=== PATIENT | male | born 1985 | race Caucasian/White ===

== ENCOUNTER 2017-06-17 22:19 | Emergency (ER) | payer MEDICAID ==
[2017-06-17 22:19] VITALS: BMI 36.8
[2017-06-17 22:26] VITALS: TEMP 98.2
[2017-06-17] MEDS ORDERED: Sodium Chloride 0.9% 1,000 ML IV STA (22:48)
[2017-06-17 23:12] VITALS: BP 136/85; PULSE 133; RESP 14; O2SAT 96
[2017-06-17 23:17] LABS: BASO # 0.1 K/uL (0.0-0.2); EOS # 0.2 K/uL (0.0-0.7); EOS % 1.5 % (0.0-4.0); HEMOGLOBIN 16.1 g/dL (12.0-18.0); LYMPH # 2.3 K/uL (1.0-4.3); LYMPH % 19.7 % (20.0-40.0); MEAN CELL VOLUME 79.2 fl (80.0-94.0); MEAN CORPUSCULAR HEMOGLOBIN 26.3 pg (27.0-31.0); MEAN CORPUSCULAR HGB CONC 33.2 g/dL (33.0-37.0); MEAN PLATELET VOLUME 8.3 fl (7.2-11.7); MONO # 0.8 K/uL (0.0-0.8); MONO % 7.1 % (0.0-10.0); NEUT # 8.2 K/uL (1.8-7.0); NEUT % 70.7 % (50.0-75.0); NRBC % 0.3 % (0.0-0.0); RBC 6.13 Mil/uL (4.40-5.90); RED CELL DISTRIBUTION WIDTH 13.9 % (11.5-14.5); WHITE BLOOD COUNT 11.6 K/uL (4.8-10.8)
[2017-06-17 23:33] LABS: ALB/GLOB RATIO 1.3 (1.0-2.1); ALBUMIN 4.4 g/dL (3.5-5.0); ALT/SGPT 41 U/L (21-72); AST/SGOT 28 U/L (17-59); BLOOD UREA NITROGEN 13 mg/dl (9-20); CALCIUM 9.7 mg/dL (8.4-10.2); GFR AFRICAN-AMERICAN > 60; GFR NON-AFRICAN AMERICAN > 60; MAGNESIUM 2.3 MG/DL (1.6-2.3)
[2017-06-17 23:41] LABS: BARBITURATES, UR NEGATIVE (NEGATIVE); BENZODIAZEPINES, UR POSITIVE (NEGATIVE); OPIATES, UR NEGATIVE (NEGATIVE); PHENCYCLIDINE, UR NEGATIVE (NEGATIVE)
--- NOTE | 2017-06-18 00:15 | ED PDOC ---
HPI: Seizure Time Seen by Provider: 06/17/17 22:30 Chief Complaint (Nursing): Seizure Chief Complaint (Provider): Seizure History Per: Patient History/Exam Limitations: no limitations Number Of Seizures: One Length Of Seizures (Duration): Minutes (1.5) Associated Symptoms: denies: Bit Tongue, Incontinence Of Urine Post-ictal Period: Yes (brief) Additional History Per: EMS, Family (brother, son) Additional Complaint(s): Manan is a 31 y/o [place] male with a history of ADD and communication disorder who was previously worked up for seizures at [facility] in December 2016 and was brought to the ED via EMS tonight after having a 1.5 minute tonic clonic seizure with a brief post-ictal period. Patient's brother and son witnessed the seizure and describe the patient as lethargic. Patient has no recollection of the events and did not have incontinence. He and his family understood after previous workup that wellbutrin was causing seizures and he needed no further treatment. PMD: Pau Gaitan Past Medical History Reviewed: Historical Data, Nursing Documentation, Vital Signs Vital Signs: Last Vital Signs Temp 98.2 F 06/17/17 22:20 Pulse 133 H 06/17/17 23:11 Resp 14 06/17/17 23:11 BP 136/85 06/17/17 23:11 Pulse Ox 96 06/18/17 01:08 - Medical History PMH: Anxiety, Asthma, Depression, Seizures Denies: Chronic Kidney Disease - Family History Family History: States: Unknown Family Hx - Social History Current smoker - smoking cessation education provided: No Alcohol: Occasional Drugs: Denies - Immunization History Hx Tetanus Toxoid Vaccination: No Hx Influenza Vaccination: No - Home Medications Home Medications: Ambulatory Orders Medication Instructions Recorded Escitalopram [Lexapro] 10 mg PO DAILY 02/14/16 Divalproex [Depakote DR (*BID*)] 250 mg PO BID #60 tcp 12/26/16 LORazepam [Ativan] 0.5 mg PO BID #12 tab 12/26/16 Metoprolol Tartrate [Lopressor] 25 mg PO BID #60 tab 12/26/16 Ciprofloxacin HCl [Cipro] 500 mg PO DAILY #7 tablet 02/22/17 Ibuprofen [Motrin] 600 mg PO Q8 PRN #15 tab 02/22/17 Tamsulosin [Flomax] 0.4 mg PO DAILY #14 cap 02/22/17 oxyCODONE/Acetaminophen [Percocet 1 ea PO Q8 PRN #5 tab 02/22/17 5/325 mg Tab] Divalproex [Depakote DR (*BID*)] 250 mg PO BID #14 ect 06/18/17 - Allergies Allergies/Adverse Reactions: Allergies Allergy/AdvReac Type Severity Reaction Status Date / Time No Known Allergies Allergy Verified 06/17/17 22:20 Review of Systems ROS Statement: Except As Marked, All Systems Reviewed And Found Negative Genitourinary Male: Negative for: Incontinence Neurological: Positive for: Seizures Physical Exam - Reviewed Nursing Documentation Reviewed: Yes Vital Signs Reviewed: Yes - Physical Exam Appears: Positive for: Well, Non-toxic, No Acute Distress ENT: Positive for: Normal ENT Inspection (no bites on tongue) Cardiovascular/Chest: Positive for: Tachycardia. Negative for: Murmur Respiratory: Positive for: Normal Breath Sounds. Negative for: Respiratory Distress Neurologic/Psych: Positive for: Alert, Oriented, Mood/Affect (flat) - Laboratory Results Result Diagrams: 06/17/17 22:56 06/17/17 22:56 - ECG O2 Sat by Pulse Oximetry: 96 (RA) Pulse Ox Interpretation: Normal - Critical Care Total Time (In Min): 30 Medical Decision Making Medical Decision Making: Time: 22:45 Initial Impression: 31 y/o male with seizure in setting of previous seizure workup Initial Plan: --EKG --Alcohol Serum --CMP --Urine Drug Screen --Magnesium --Prolactin --CBC --Accucheck --Provider reviewed chart at [facility]; patient was discharged on Ativan, valproic acid, and lopressin though patient and family are denying any medications on discharge. --They also state on follow up with Dr. Ana Rosa Mcpherson he did not require further treatment --Provider noted that EEG was abnormal which they state was not communicated to them. Time: 1:00 --Labs reviewed no clinically significant abnormalities --Patient has been seizure free since arrival to ED --Provider offered observation status which patient and brother declined --Patient loaded with oral valproic acid. He is mildly tachycardic but reports he's anxious and develops tachycardia in the ER. --Patient and brother have committed to follow up with Dr. Mcpherson. Dr. Mcpherson has been contacted multiple times with no response. Clinical Impression: Seizure Condition: Improved Scribe Attestation: Documented by Francisco Javier Long, acting as a scribe for Mainor Lopez MD Provider Scribe Attestation: All medical record entries made by the Scribe were at my direction and personally dictated by me. I have reviewed the chart and agree that the record accurately reflects my personal performance of the history, physical exam, medical decision making, and the department course for this patient. I have also personally directed, reviewed, and agree with the discharge instructions and disposition. Disposition - Clinical Impression Clinical Impression: Witnessed seizure - Patient ED Disposition Is Patient to be Admitted: No Counseled Patient/Family Regarding: Studies Performed, Diagnosis, Need For Followup, Rx Given - Disposition Referrals: Meño Mcpherson MD [Staff Provider] - Disposition Time: 01:00 Condition: STABLE Prescriptions: Divalproex [Depakote DR (*BID*)] 250 mg PO BID #14 ect Instructions: Seizures, Adult (DC) Forms: [employer] [facility] (Salvadorean)
[2017-06-18] MEDS ORDERED: Valproic Acid 250 mg/5 ml UD Cup PO STA (00:57)
--- NOTE | 2017-06-18 14:47 | CARD ---
APPROVED REPORT EKG Measurement Heart [id number] <Conclusion> Sinus tachycardia Otherwise normal ECG
[2017-06-19 18:20] LABS: PROLACTIN 30.1 ng/mL (3.7-17.9)
== END 2017-06-18 01:38 | disposition home or self-care (01) ==
LOC: H.ER 22:19
DX: R56.9 Unspecified convulsions (principal); F32.9 Major depressive disorder, single episode, unspecified; F41.9 Anxiety disorder, unspecified; J45.909 Unspecified asthma, uncomplicated
CPT/HCPCS: 80053; 80320; 80324; 80345; 80346; 80349; 80353; 80358; 80361; 82948; 83735; 83992; 84146; 85025; 93005; 96360; 99285; J7040